=== PATIENT | female | born 1955 | race Caucasian/White ===

== ENCOUNTER → 2017-01-21 | Outpatient (CLI) | payer OTHER ==
[~2017-01-21] MED LIST: ALBUTEROL2.5 MG/0.5 INH; ALLEGRA ALLERG180 MG PO; BACTROBAN CREAM30 G1 TOP; BENADRYL25 MG PO; BROVANA15 MCG/2 M INH; BUTRANS1 EAC1 TOP; CALCIUM 500 +1 EAC5 PO; CATHFLO ACT2 MG/VIAL INJECTION; CELEBREX 200 M200 MG PO; DUONEB 2.5-0.5 M3 ML INH; FISH OIL 1,001000 M2 PO; FUROSEMIDE40 MG/4 ML IV PUSH; LEVEMIR SUBQ; LIORESAL 10 MG10 MG PO; LIPITOR20 MG PO; NOVOLOG100 UNIT/1 SUBQ; ORENCIA125 MG/1 M IV; OXYCONTIN10 M1 PO; PERCOCET 10-321 EACH PO; PERCOCET 10-651 EACH PO; PREDNISONE 20 M20 MG PO; PREDNISONE 5 MG5 M1 PO; PROTONIX 20 MG20 M1 PO; PROTONIX IV40 MG IV; PROTONIX40 M1 PO; ROBAXIN 750 MG750 M1 PO; SIMVASTATIN40 MG PO; TYLENOL325 MG PO; VANCOMYCIN1.25 GM/25 IV; VITAMINC500 PO; XELJANZ5 MG PO; ZANTAC 150MG T150 M1 PO; ZETIA10 MG PO
== END ==
LOC: RAD 09:24
DX: M47.812 Spondylosis without myelopathy or radiculopathy, cervical region (principal); M54.12 Radiculopathy, cervical region; M54.16 Radiculopathy, lumbar region